=== PATIENT | male | born 1990 | race Caucasian/White ===

== ENCOUNTER 2020-05-29 15:54 | Emergency (ER) | payer OTHER ==
[~2020-05-29] VITALS: Ht 172.7 cm; Wt 90.0 kg
[2020-05-29 16:00] VITALS: BP 135/85
--- NOTE | 2020-05-29 17:19 | RAD ---
FOOT LEFT 3V 05/29/2020 4:51 PM INDICATION: Fifth digit injury COMPARISON: None available. TECHNIQUE: 3 views of the left foot are provided. 2 dedicated views of the fifth digit are provided. FINDINGS/ IMPRESSION: 1. There is a mildly displaced fracture involving the lateral base of the middle phalanx of the fifth digit with intra-articular extension. There is adjacent soft tissue swelling. 2. Bone mineralization is within normal limits. No subcutaneous gas or osseous erosion. No radiopaque foreign density. Electronically signed by: Dasia Sheehan MD (05/29/2020 5:16 PM) [id number]
--- NOTE | 2020-05-29 17:30 | PHYS DOC ---
Past History Past Medical History: No Pertinent History Past Surgical History: Cholecystectomy Alcohol Use: Rarely General Adult EDM: Chief Complaint: FOOT INJURY PAIN HPI: HPI: 29-year-old male presents with a left fifth toe pain. The patient was out walking with the dog when he caught his toe on a piece of furniture and it yanked it out laterally. He has had bruising and pain since that time. The patient is able to walk. He is only really concerned about it because he has a record PT test tomorrow and he does not feel like he can run. He denies any other injuries or complaints. Review of Systems: Review of Systems: Constitutional: Denies fever or chills Eyes: Denies change in visual acuity HENT: Denies nasal congestion or sore throat Respiratory: Denies cough or shortness of breath Cardiovascular: Denies chest pain or edema GI: Denies abdominal pain, nausea, vomiting, bloody stools or diarrhea : Denies dysuria Musculoskeletal: Left fifth toe pain Integument: Denies rash Neurologic: Denies headache, focal weakness or sensory changes Endocrine: Denies polyuria or polydipsia Lymphatic: Denies swollen glands Psychiatric: Denies depression or anxiety Allergies: Allergies: Allergies Coded Allergies Type Severity Reaction Last Updated Verified No Known Drug Allergies 05/29/20 No Physical Exam: PE: Constitutional: Well developed, well nourished, no acute distress, non-toxic appearance. [] HENT: Normocephalic, atraumatic, bilateral external ears normal, oropharynx moist, no oral exudates, nose normal. [] Eyes: PERRLA, EOMI, conjunctiva normal, no discharge. [] Neck: Normal range of motion, no tenderness, supple, no stridor. [] Cardiovascular:Heart rate regular rhythm, no murmur [] Lungs & Thorax: Bilateral breath sounds clear to auscultation [] Abdomen: Bowel sounds normal, soft, no tenderness, no masses, no pulsatile masses. [] Skin: Warm, dry, no erythema, no rash. [] Back: No tenderness, no CVA tenderness. [] Extremities: Bruising and tenderness of the left fifth toe, no obvious deformity. [] Neurologic: Alert and oriented X 3, normal motor function, normal sensory function, no focal deficits noted. [] Psychologic: Affect normal, judgement normal, mood normal. [] Current Patient Data: Vital Signs: Vital Signs Date Time Temp Pulse Resp B/P (MAP) Pulse Ox O2 Delivery O2 Flow Rate FiO2 05/29/20 16:00 98.7 87 16 135/85 (102) 97 EKG: EKG: [] Radiology/Procedures: Radiology/Procedures: [] Impressions: FOOT LEFT 3V 05/29/2020 4:51 PM INDICATION: Fifth digit injury COMPARISON: None available. TECHNIQUE: 3 views of the left foot are provided. 2 dedicated views of the fifth digit are provided. FINDINGS/ IMPRESSION: 1. There is a mildly displaced fracture involving the lateral base of the middle phalanx of the fifth digit with intra-articular extension. There is adjacent soft tissue swelling. 2. Bone mineralization is within normal limits. No subcutaneous gas or osseous erosion. No radiopaque foreign density. Electronically signed by: Ruben Sheehan MD (05/29/2020 5:16 PM) [id number] DICTATED AND SIGNED BY: RUBEN SHEEHAN MD DATE: 05/29/20 1716 CC: BRITTANY CUMMINS DO; PCP,NO ~ Heart Score: Risk Factors: Risk Factors: DM, Current or recent (<one month) smoker, HTN, HLP, family history of CAD, obesity. Risk Scores: Score 0 - 3: 2.5% MACE over next 6 weeks - Discharge Home Score 4 - 6: 20.3% MACE over next 6 weeks - Admit for Clinical Observation Score 7 - 10: 72.7% MACE over next 6 weeks - Early Invasive Strategies Course & Med Decision Making: Course & Med Decision Making Pertinent Labs and Imaging studies reviewed. (See chart for details) The patient does have a fracture of the toe. We will jeanette tape it to the toe next to it. I will also give him a note for restricted physical training. He is stable for discharge at this time. [] Dragon Disclaimer: Dragon Disclaimer: This electronic medical record was generated, in whole or in part, using a voice recognition dictation system. Departure Departure: Impression: Primary Impression: Toe fracture, left Qualified Codes: S92.522A - Displaced fracture of middle phalanx of left lesser toe(s), initial encounter for closed fracture Disposition: 01 DC HOME SELF CARE/HOMELESS Condition: STABLE Referrals: PCP,NO (PCP) Patient Instructions: Jeanette Taping of Toes, Toe Fracture with [facility] BRITTANY CUMMINS DO May 29, 2020 17:30
== END 2020-05-29 17:33 | disposition home or self-care (01) ==
LOC: ER 15:54
DX: S92.522A Displaced fracture of middle phalanx of left lesser toe(s), initial encounter for closed fracture (principal); W23.0XXA Caught, crushed, jammed, or pinched between moving objects, initial encounter; Y93.89 Activity, other specified; Y92.89 Other specified places as the place of occurrence of the external cause; Y99.8 Other external cause status
CPT/HCPCS: 73630; 99283

== ENCOUNTER 2020-09-06 20:06 | Emergency (ER) | payer OTHER ==
[~2020-09-06] VITALS: Ht 172.7 cm; Wt 90.0 kg
[2020-09-06] MEDS ORDERED: ONDA4TAB12 PO (20:29)
--- NOTE | 2020-09-06 20:30 | PHYS DOC ---
Past History Past Medical History: No Pertinent History Past Surgical History: Cholecystectomy Alcohol Use: Rarely General Adult EDM: Chief Complaint: OTHER COMPLAINTS HPI: HPI: Patient is a [age] year old [sex] who presents with [] Review of Systems: Review of Systems: Constitutional: Denies fever or chills Eyes: Denies redness or eye pain HENT: Denies nasal congestion or sore throat Respiratory: Denies cough or shortness of breath Cardiovascular: Denies chest pain or palpitations GI: Denies abdominal pain, nausea, or vomiting : Denies dysuria or hematuria Musculoskeletal: Denies back pain or joint pain Integument: Denies rash or skin lesions Neurologic: Denies headache, focal weakness or sensory changes Complete systems were reviewed and found to be within normal limits, except as documented in this note. Allergies: Allergies: Allergies Coded Allergies Type Severity Reaction Last Updated Verified No Known Drug Allergies 05/29/20 No Physical Exam: PE: Constitutional: Well developed, well nourished, no acute distress, non-toxic appearance HENT: Normocephalic, atraumatic Eyes: PERRL, EOMI, conjunctiva normal, no discharge Neck: Normal range of motion, no tenderness, supple Lungs & Thorax: No respiratory distress, equal chest rise and fall Abdomen: Soft, no tenderness Skin: Warm, dry, no erythema, no rash Back: No tenderness, no CVA tenderness Extremities: No tenderness, ROM intact, no edema Neurologic: Alert and oriented X 3, normal motor function, normal sensory function, no focal deficits noted Psychologic: Affect normal, judgment normal Current Patient Data: Vital Signs: Vital Signs Date Time Temp Pulse Resp B/P (MAP) Pulse Ox O2 Delivery O2 Flow Rate FiO2 09/06/20 20:16 98.5 77 16 150/103 (119) 97 Room Air EKG: EKG: [] Radiology/Procedures: Radiology/Procedures: [] Course & Med Decision Making: Course & Med Decision Making Patient stable for discharge with outpatient follow-up with PCP. Discussed findings and plan with patient, who acknowledges understanding and agreement. Deirdre Disclaimer: Deirdre Disclaimer: This electronic medical record was generated, in whole or in part, using a voice recognition dictation system. Departure Departure: Impression: Primary Impression: Suspected 2019 novel coronavirus infection Additional Impression: Nausea vomiting and diarrhea Disposition: 01 DC HOME SELF CARE/HOMELESS Condition: STABLE Referrals: PCP,KETAN (PCP) Patient Instructions: Diarrhea, [id number], Diet for Diarrhea, Adult, Headache, FAQs, Nausea and Vomiting, [id number] Additional Instructions: You have been tested for or diagnosed with COVID-19. It is an infection caused by a new type of coronavirus. COVID-19 will cause cold-like or mild flu symptoms in most. It can cause more severe symptoms like problems breathing in some. There is no treatment for COVID-19. The body will clear the infection over time. Self-care will help to ease discomfort. Steps to Take: Self-Care Rest as needed. Healthy habits may help you feel better. Steps include: Choose healthy foods including fruits and vegetables. Drink water throughout the day. Get plenty of sleep each night. If you smoke, try to quit. It may ease breathing. Avoid alcohol. Keep Others Healthy The virus can spread to others. Droplets are released every time you sneeze or cough. The droplets can get into the mouth, nose, or eyes of people near you and lead to infection. To lower the chances of spreading COVID-19 to others: Stay at home until your doctor has said it is safe to leave. If you tested positive this will mean staying isolated until both of the following are true: At least 7 days have passed since the start of illness. You are free of fever for at least 72 hours without the use of medicine. During this time: - Avoid public areas, events, or transportation. Do not return to work or school until your doctor has said it is safe to do so. - Call ahead if you need to go to a medical center. Let them know you may have COVID-19. It will help them guide you where to go. They may also ask you to wear a facemask when you come to the office. - If you call for emergency medical services, let them know you may have COVID-19. While at home: - Try to avoid close contact with others. Stay about 6 feet away. - If possible, spend most of your time in a separate room from others. - Use a face mask if you will be in close contact with others such as sharing a room or vehicle. - Have someone wipe down common surfaces in the home. Use household certified technician every day on areas like doorknobs, counters, or sinks. - Cough or sneeze into a tissue. Throw the tissue away right after use. If a tissue is not available, cough or sneeze into your elbow. - Wash your hands often. Wash them after sneezing or coughing. Use soap and water and wash for at least 20 seconds. Alcohol based hand assembly cleaner can be used if soap and water is not available. - Do not prepare food for others. Avoid sharing personal items like forks, spoons, or toothbrushes. - Avoid close contact with pets while you are sick. There is no evidence of the virus passing to pets. This is a safety step until more is known about this virus. Isolation can be frustrating. Social interaction can help. Keep in touch with friends and family through phone and tech options. You can still interact with others in your home, just keep a safe distance of about 6 feet. Follow-up: Your doctors office will check in with you to see if there are any changes in your health. You may be asked to keep track of symptoms to share with them. They will also let you know when you are clear to be in public again. Problems to Look Out For: Contact your doctor if your recovery is not going as you expect. Get emergency care if you have problems such as: - Trouble breathing - Nonstop chest pain or pressure - Changes in awareness, confusion, or problems waking - Lips or face have bluish color - Worsening of symptoms If you think you have an emergency, call for emergency medical services right away. [facility] Scripts Ondansetron (ONDANSETRON ODT) 4 Mg Tab.rapdis 1 TAB PO PRN Q6-8HRS PRN for NAUSEA, #16 TAB Prov: BRIGID POSADA DO 09/06/20 BRIGID POSADA DO Sep 06, 2020 20:29
--- NOTE | 2020-09-10 09:48 | NUR ---
IP: notified patient of COVID result.
== END 2020-09-06 20:37 | disposition home or self-care (01) ==
LOC: ER 20:06
DX: R11.2 Nausea with vomiting, unspecified (principal); R19.7 Diarrhea, unspecified; R51.9 Headache, unspecified; Z20.822 Contact with and (suspected) exposure to COVID-19
CPT/HCPCS: 99283; C9803; U0003

== ENCOUNTER 2021-01-04 16:08 | Emergency (ER) | payer OTHER ==
[~2021-01-04] VITALS: Ht 172.7 cm; Wt 90.0 kg
[~2021-01-04 16:08] MED LIST: ONDA4TAB12 PO
--- NOTE | 2021-01-04 17:25 | EKG ---
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
[2021-01-04] MEDS ORDERED: KETOROLAC 15 MG/ML VIAL. IVP ONE (18:00)
[2021-01-04] MEDS ORDERED: MECLIZINE 12.5 MG TABLET. PO ONE (18:00)
[2021-01-04] MEDS ORDERED: diphenhydrAMINE 50 MG/ML VIAL IM ONE (18:00)
[2021-01-04 18:25] VITALS: BP 115/67
--- NOTE | 2021-01-04 18:38 | PHYS DOC ---
Past History Past Medical History: Migraines Past Surgical History: Cholecystectomy Smoking: Non-smoker Alcohol Use: Rarely Drug Use: None General Adult EDM: Chief Complaint: DIZZY/LIGHT HEADED HPI: HPI: Patient is a 30-year-old male who presents with dizziness and headache. Patient states the dizziness started this morning. Patient has a history of chronic migraines. Patient has had an recent MRI which was negative for any acute a bnormalities. Patient has also recently worn a Holter monitor from cardiology and results were unremarkable. Patient states that dizziness is worse with position changes. Patient denies nausea/vomiting/diarrhea. Patient is currently taking amitriptyline for migraines which he says has helped. Patient's only history is migraines Review of Systems: Review of Systems: Constitutional: Denies fever or chills Eyes: Denies change in visual acuity HENT: Denies nasal congestion or sore throat, large amount of wax in right ear Respiratory: Denies cough or shortness of breath Cardiovascular: Denies chest pain or edema GI: Denies abdominal pain, nausea, vomiting, bloody stools or diarrhea : Denies dysuria Musculoskeletal: Denies back pain or joint pain Integument: Denies rash Neurologic: Reports headache, denies focal weakness or sensory changes Endocrine: Denies polyuria or polydipsia Lymphatic: Denies swollen glands Psychiatric: Denies depression or anxiety Current Medications: Current Meds: Current Medications Medications (Trade) Dose Ordered Sig/Jong Start Time Stop Time Status Last Admin Dose Admin Diphenhydramine HCl (Benadryl) 25 mg 1X ONCE 01/04/21 18:00 01/04/21 18:05 DC 01/04/21 18:21 25 MG Ketorolac Tromethamine (Toradol 15mg Vial) 15 mg 1X ONCE 01/04/21 18:00 01/04/21 18:05 DC 01/04/21 18:21 15 MG Meclizine HCl (Antivert) 25 mg 1X ONCE 01/04/21 18:00 01/04/21 18:05 DC 01/04/21 18:21 25 MG Allergies: Allergies: Allergies Coded Allergies Type Severity Reaction Last Updated Verified No Known Drug Allergies 05/29/20 No Physical Exam: PE: Constitutional: Well developed, well nourished, no acute distress, non-toxic appearance. [] HENT: Normocephalic, atraumatic,large amount of cerumen right ear, oropharynx moist, no oral exudates, nose normal. [] Eyes: PERRLA, EOMI, conjunctiva normal, no discharge. [] Neck: Normal range of motion, no tenderness, supple, no stridor. [] Cardiovascular:Heart rate regular rhythm, no murmur [] Lungs & Thorax: Bilateral breath sounds clear to auscultation [] Abdomen: Bowel sounds normal, soft, no tenderness, no masses, no pulsatile masses. [] Skin: Warm, dry, no erythema, no rash. [] Back: No tenderness, no CVA tenderness. [] Extremities: No tenderness, no cyanosis, no clubbing, ROM intact, no edema. [] Neurologic: Alert and oriented X 3, normal motor function, normal sensory function, no focal deficits noted. [] Psychologic: Affect normal, judgement normal, mood normal. [] Current Patient Data: Vital Signs: Vital Signs Date Time Temp Pulse Resp B/P (MAP) Pulse Ox O2 Delivery O2 Flow Rate FiO2 01/04/21 18:25 100 16 115/67 (83) 100 Room Air 01/04/21 16:37 98.0 EKG: EKG: [] Radiology/Procedures: Radiology/Procedures: [] Heart Score: C/O Chest Pain: No Risk Factors: Risk Factors: DM, Current or recent (<one month) smoker, HTN, HLP, family history of CAD, obesity. Risk Scores: Score 0 - 3: 2.5% MACE over next 6 weeks - Discharge Home Score 4 - 6: 20.3% MACE over next 6 weeks - Admit for Clinical Observation Score 7 - 10: 72.7% MACE over next 6 weeks - Early Invasive Strategies Course & Med Decision Making: Course & Med Decision Making Pertinent Labs and Imaging studies reviewed. (See chart for details) [] 30-year-old male presents with dizziness and headache. Patient's dizziness is worse with position changes. Patient's denying nausea or vomiting. Denies focal weakness or sensory changes. Denies visual changes. Denies worst headache of his life. Denies thunderclap. Patient has a history of migraines and recent testing has all been negative for any acute abnormalities. Patient given Benadryl, Zofran, Toradol, meclizine. Patient reports symptoms improved after medications. Physical exam of right ear showed cerumen impaction. Patient is most likely experiencing vertigo which is causing his dizziness. Meclizine given to take at home. Suggest the patient take [id number] Debrox to soften the wax. Patient instructed to return emergency room with worsening symptoms or concerns. Dragon Disclaimer: Татьянаon Disclaimer: This electronic medical record was generated, in whole or in part, using a voice recognition dictation system. Departure Departure: Impression: Primary Impression: Migraine Qualified Codes: G43.009 - Migraine without aura, not intractable, without status migrainosus Disposition: HOME / SELF CARE / HOMELESS Condition: STABLE Referrals: DALILA BLANCO DO (PCP) Patient Instructions: Migraine Headache Additional Instructions: Emergency room for dizziness and migraine headache. You were given Toradol, Benadryl, meclizine for headache and dizziness. Your EKG was negative for any acute abnormalities. Please call your PCP for a follow-up appointment. You can take ibuprofen and Tylenol at home for discomfort. Please purchase Debrox w hich is [id number] to help soften the wax in your right ear which could be contributing to your dizziness. Also sending you home with a prescription for meclizine which helps with dizziness. EMERGENCY DEPARTMENT GENERAL DISCHARGE INSTRUCTIONS Thank you for coming to [facility] (ED) today and trusting us with you care. We trust that you had a positivie experience in our Emergency Department. If you wish to speak to the department management, you may call the director at . YOUR FOLLOW UP INSTRUCTIONS ARE FOLLOWS: 1. Do you have a private Doctor? If you do not have a private doctor, please ask for a resource list of physicians or clinics that may be able to assist you with follow up care. 2. The Emergency Physician has interpreted your x-rays. The X-Ray specialist will also review them. If there is a change in the findings, you will be notified in 48 hours when at all possible. 3. A lab test or culture has been done, your results will be reviewed and you will be notified if you need a change in treatment. ADDITIONAL INSTRUCTIONS AND INFORMATION: 1. Your care today has been supervised by a physician who is specially trained in emergency care. Many problems require more than one evaluation for a complete diagnosis and treatment. We recommend that you schedule your follow up appointment as recommended to ensure complete treatment of you illness or injury. If you are unable to obtain follow up care and continue to have a problem, or if your condition worsens, we recommend that you return to the ED. 2. We are not able to safely determine your condition over the phone nor are we able to give sound medical advice over the phone. For these safety reasons, if you call for medical advice we will ask you to come to the ED for further evaluation. 3. If you have any questions regarding these discharge instructions please call the ED at [phone]. SAFETY INFORMATION: In the interest of safety, wellness, and injury prevention; we encourage you to wear your sealbelt, if you smoke; quite smoking, and we encourage family to use a protective helmet for bicycling and other sporting events that present an increased risk for head injury. IF YOUR SYMPTOMS WORSEN OR NEW SYMPTOMS DEVELOP, OR YOU HAVE CONCERNS ABOUT YOUR CONDITION; OR IF YOUR CONDITION WORSENS WHILE YOU ARE WAITING FOR YOUR FOLLOW UP APPOINTMENT; EITHER CONTACT YOUR PRIMARY CARE DOCTOR, THE PHYSICIAN WHOSE NAME AND NUMBER YOU WERE GIVEN, OR RETURN TO THE ED IMMEDIATELY. Scripts Meclizine Hcl (MECLIZINE HCL) 25 Mg Tablet 1 TAB PO TID for dizziness for 7 Days, #21 TAB Prov: FADIA EUGENE APRN 01/04/21 FADIA EUGENE APRN January 04, 2021 18:38
[2021-01-04] MEDS ORDERED: MECL-75 PO (19:31)
== END 2021-01-04 19:46 | disposition home or self-care (01) ==
LOC: ER 16:08
DX: G43.909 Migraine, unspecified, not intractable, without status migrainosus (principal); R42 Dizziness and giddiness; F17.210 Nicotine dependence, cigarettes, uncomplicated; Z90.49 Acquired absence of other specified parts of digestive tract
CPT/HCPCS: 93005; 96372; 96374; 99283; J1200; J1885

== ENCOUNTER 2021-05-20 19:23 | Emergency (ER) | payer OTHER ==
[~2021-05-20] VITALS: Ht 172.7 cm; Wt 86.3 kg
[~2021-05-20 19:23] MED LIST changes: +MECL-75 PO
[2021-05-20] MEDS ORDERED: ONDANSETRON ODT 4 MG TAB.RAPDIS ONE (19:33)
--- NOTE | 2021-05-20 19:43 | PHYS DOC ---
Past History Past Medical History: Migraines (KEMI GALICIA APRN) Past Surgical History: Cholecystectomy (KEMI GALICIA APRN) Smoking: Non-smoker Alcohol Use: Rarely Drug Use: None (KEMI GALICIA APRN) General Adult EDM: Chief Complaint: DIZZY/LIGHT HEADED HPI: HPI: Patient is a 30-year-old male who presents to the ER for complaints of feeling of his heart is racing associated with diaphoresis, dizziness and nausea that started 30 minutes prior to arrival while he was playing with his daughter. Patient states that he has had palpitations in the past and wore a Holter monitor for 72 hours but no abnormalities were found. Patient reports that his palpitations have improved but is still experiencing dizziness and nausea. He describes it as the room spinning. It is worse with head movements. Patient has no medical history and takes no medications at home. He does not smoke and he has no family history of heart disease. Patient denies vomiting, shortness of breath, cough, fevers, chest pain. (KEMI GALICIA APRN) Review of Systems: Review of Systems: 14 body systems of the review of systems have been reviewed. See HPI for pertinent positive and negative responses, otherwise all other systems are negative, nonpertinent or noncontributory (KEMI GALICIA APRN) Current Medications: Current Meds: Current Medications Medications (Trade) Dose Ordered Sig/Jong Start Time Stop Time Status Last Admin Dose Admin Ondansetron HCl (Zofran Odt) 4 mg STK-MED ONCE 05/20/21 19:33 05/20/21 19:33 DC (KEMI GALICIA APRN) Allergies: Allergies: Allergies Coded Allergies Type Severity Reaction Last Updated Verified No Known Drug Allergies 05/29/20 No (KEMI GALICIA APRN) Physical Exam: PE: Constitutional: Well developed, well nourished, no acute distress, non-toxic appearance. [] HENT: Normocephalic, atraumatic, bilateral external ears normal, oropharynx moist, no oral exudates, nose normal. [] Eyes: PERRL, EOMI, conjunctiva normal, no discharge. [] Neck: Normal range of motion, no stridor Cardiovascular:Heart rate regular rhythm, no murmur [] Lungs & Thorax: Bilateral breath sounds clear to auscultation [] Abdomen: Bowel sounds normal, soft, no tenderness, no masses, no pulsatile masses. [] Skin: Warm, dry, no erythema, no rash. [] Back: Normal range of motion Extremities: No tenderness, no cyanosis, no clubbing, ROM intact, no edema. [] Neurologic: Alert and oriented X 3, normal motor function, normal sensory function, no focal deficits noted, dizziness worse with horizontal head movements Psychologic: Affect normal, judgement normal, mood normal. [] (KEMI GALICIA APRN) Current Patient Data: Labs: Laboratory Tests Test 05/20/21 19:34 White Blood Count 7.9 x10^3/uL Red Blood Count 5.26 x10^6/uL Hemoglobin 16.0 g/dL Hematocrit 46.3 % Mean Corpuscular Volume 88 fL Mean Corpuscular Hemoglobin 30 pg Mean Corpuscular Hemoglobin Concent 35 g/dL Red Cell Distribution Width 12.8 % Platelet Count 255 x10^3/uL Neutrophils (%) (Auto) 41 % Lymphocytes (%) (Auto) 50 % Monocytes (%) (Auto) 6 % Eosinophils (%) (Auto) 3 % Basophils (%) (Auto) 1 % Neutrophils # (Auto) 3.2 x10^3uL Lymphocytes # (Auto) 3.9 x10^3/uL Monocytes # (Auto) 0.5 x10^3/uL Eosinophils # (Auto) 0.2 x10^3/uL Basophils # (Auto) 0.0 x10^3/uL Sodium Level 140 mmol/L Potassium Level 3.9 mmol/L Chloride Level 103 mmol/L Carbon Dioxide Level 31 mmol/L Anion Gap 6 Blood Urea Nitrogen 12 mg/dL Creatinine 1.1 mg/dL Estimated GFR (Cockcroft-Gault) 79.7 BUN/Creatinine Ratio 11 Glucose Level 137 mg/dL Calcium Level 9.5 mg/dL Total Bilirubin 0.3 mg/dL Aspartate Amino Transf (AST/SGOT) 17 U/L Alanine Aminotransferase (ALT/SGPT) 36 U/L Alkaline Phosphatase 74 U/L Troponin I Quantitative < 0.017 ng/mL Total Protein 6.9 g/dL Albumin 4.2 g/dL Albumin/Globulin Ratio 1.6 Current Medications Medications (Trade) Dose Ordered Sig/Jong Route PRN Reason Start Time Stop Time Status Last Admin Dose Admin Ondansetron HCl (Zofran Odt) 4 mg STK-MED ONCE .ROUTE 05/20/21 19:33 05/20/21 19:33 DC Sodium Chloride 1,000 ml @ 100 mls/hr Q10H IV 05/20/21 19:45 05/21/21 05:44 05/20/21 19:42 Meclizine HCl (Antivert) 25 mg 1X ONCE PO 05/20/21 20:15 05/20/21 20:16 DC 05/20/21 19:45 Ondansetron HCl (Zofran Odt) 4 mg 1X ONCE PO 05/20/21 20:15 05/20/21 20:16 DC 05/20/21 19:45 Vital Signs: Vital Signs Date Time Temp Pulse Resp B/P (MAP) Pulse Ox O2 Delivery O2 Flow Rate FiO2 05/20/21 19:36 69 18 131/67 (88) 99 (KEMI GALICIA APRN) EKG: EKG: EKG performed at 1926 shows sinus rhythm with a rate of 77, QTc 402, no stemi, read by Dr. Laboy at 1938 (KEMI GALICIA APRN) Radiology/Procedures: Radiology/Procedures: []PROCEDURE: PORTABLE CHEST 1V AP chest. HISTORY: Palpitations AP view was taken of the chest. Lungs are free of infiltrates. There is mild bowel distention the abdomen. Heart is normal in size. There is no pleural ef fusion. IMPRESSION: 1. No acute infiltrates. Electronically signed by: Isidro Alvarez MD (05/20/2021 8:07 PM) [facility] DICTATED AND SIGNED BY: ISIDRO ALVAREZ MD DATE: 05/20/212005 CC: EMERGENCY,DEPARTMENT; KEMI GALICIA APRN; PCP,UNKNOWN ~MTH0 0 (KEMI GALICIA APRN) Heart Score: C/O Chest Pain: No HEART Score for Chest Pain: HEART Score for Chest Pain Response (Comments) Value History Slighlty/Non-Suspicious 0 ECG Normal 0 Age < 45 0 Risk Factors No Risk Factors 0 Troponin < Normal Limit 0 Total 0 Risk Factors: Risk Factors: DM, Current or recent (<one month) smoker, HTN, HLP, family hi story of CAD, obesity. Risk Scores: Score 0 - 3: 2.5% MACE over next 6 weeks - Discharge Home Score 4 - 6: 20.3% MACE over next 6 weeks - Admit for Clinical Observation Score 7 - 10: 72.7% MACE over next 6 weeks - Early Invasive Strategies (KEMI GALICIA APRN) Course & Med Decision Making: Course & Med Decision Making Pertinent Labs and Imaging studies reviewed. (See chart for details) [] Patient is a 30-year-old male being seen in the ER for palpitations, dizziness and nausea. Work-up in the ER consisted of chest x-ray, EKG, blood work.Negative for orthostatic hypotension. He was treated with nausea medication, Antivert and IV fluids. Patient also given aspirin tablet. Patient has horizontal nystagmus, dizziness worse with head movements/position changes, is intermittent and best when patient is sitting -worse with laying flat/standing, it was sudden onset, associated with nausea, described as spinning sensation. Patient's work-up in the ER was unremarkable. Patient will be discharged home with Antivert and advised to increase his fluids at home. Patient advised to follow-up with his primary care provider tomorrow regarding his ER visit. I discussed with patient all findings and diagnostic testing as well as the need to follow-up with PCP for further evaluation and treatment or return to the ER if any new or worsening symptoms. Strict return precautions were also discussed at length. Patient voiced understanding and agreement with the plan. Patient is hemodynamically stable at the time of disposition. (KEMI GALICIA APRN) Dragon Disclaimer: Dragon Disclaimer: This electronic medical record was generated, in whole or in part, using a voice recognition dictation system. (KEMI GALICIA APRN) Departure Departure: Impression: Primary Impression: Vertigo Disposition: 01 HOME / SELF CARE / HOMELESS Condition: GOOD Referrals: PCP,UNKNOWN (PCP) Patient Instructions: Vertigo Additional Instructions: You are seen in the emergency department for dizziness, palpitations and nausea. Your work-up in the ER was unremarkable. It is likely that you are experiencing something called vertigo. You are being discharged home with a medication called Antivert that you can take for your dizziness at home. Ensure that you increase your fluids and are having adequate amount of fluid intake as dehydration can also cause dizziness. As we discussed, at this time you are not having an acute coronary syndrome. That however does not mean that you are not having irregular heartbeats that were not witnessed in the ER. I would advise you to follow-up with your primary care provider tomorrow regarding your ER visit. You may need to be evaluated by cardiology. You can contact the cardiology group at [facility] by calling [phone] to set up an appointment. Slowly make position changes to avoid falling. Please return to the emergency department if you develop chest pain, palpitations, dizziness, syncope, intractable nausea or vomiting, high fevers refractory to treatment, confusion, severe headache, speech problems, vision problems, shortness of breath, falls or any new or worsening concerns. EMERGENCY DEPARTMENT GENERAL DISCHARGE INSTRUCTIONS Thank you for coming to [facility] (ED) today and trusting us with you care. We trust that you had a positivie experience in our Emergency Department. If you wish to speak to the department management, you may call the director at [phone]. YOUR FOLLOW UP INSTRUCTIONS ARE FOLLOWS: 1. Do you have a private Doctor? If you do not have a private doctor, please ask for a resource list of physicians or clinics that may be able to assist you with follow up care. 2. The Emergency Physician has interpreted your x-rays. The X-Ray specialist will also review them. If there is a change in the findings, you will be notified in 48 hours when at all possible. 3. A lab test or culture has been done, your results will be reviewed and you will be notified if you need a change in treatment. ADDITIONAL INSTRUCTIONS AND INFORMATION: 1. Your care today has been supervised by a physician who is specially trained in emergency care. Many problems require more than one evaluation for a complete diagnosis and treatment. We recommend that you schedule your follow up appointment as recommended to ensure complete treatment of you illness or injury. If you are unable to obtain follow up care and continue to have a problem, or if your condition worsens, we recommend that you return to the ED. 2. We are not able to safely determine your condition over the phone nor are we able to give sound medical advice over the phone. For these safety reasons, if you call for medical advice we will ask you to come to the ED for further evaluation. 3. If you have any questions regarding these discharge instructions please call the ED at [phone]. SAFETY INFORMATION: In the interest of safety, wellness, and injury prevention; we encourage you to wear your sealbelt, if you smoke; quite smoking, and we encourage family to use a protective helmet for bicycling and other sporting events that present an increased risk for head injury. IF YOUR SYMPTOMS WORSEN OR NEW SYMPTOMS DEVELOP, OR YOU HAVE CONCERNS ABOUT YOUR CONDITION; OR IF YOUR CONDITION WORSENS WHILE YOU ARE WAITING FOR YOUR FOLLOW UP APPOINTMENT; EITHER CONTACT YOUR PRIMARY CARE DOCTOR, THE PHYSICIAN WHOSE NAME AND NUMBER YOU WERE GIVEN, OR RETURN TO THE ED IMMEDIATELY. Scripts Meclizine Hcl (MECLIZINE HCL) 25 Mg Tablet 1 TAB PO TID for vertigo for 7 Days, #21 TAB 0 Refills Prov: KEMI GALICIA APRN 05/20/21 Attending Signature Attending Signature I have participated in the care of this patient and I have reviewed and agree wi th all pertinent clinical information above including history, exam, and recommendations. (IRLANDA LABOY MD) KEMI GALICIA APRN May 20, 2021 19:43 IRLANDA LABOY MD May 21, 2021 06:47
[2021-05-20] MEDS ORDERED: IV NORMAL SALINE 1,000ML 1,000 ML IV SCH (19:45)
--- NOTE | 2021-05-20 20:09 | RAD ---
AP chest. HISTORY: Palpitations AP view was taken of the chest. Lungs are free of infiltrates. There is mild bowel distention the abd omen. Heart is normal in size. There is no pleural effusion. IMPRESSION: 1. No acute infiltrates. Electronically signed by: Isidro Alvarez MD (05/20/2021 8:07 PM) [facility]
[2021-05-20] MEDS ORDERED: MECLIZINE 12.5 MG TABLET. PO ONE (20:15)
[2021-05-20] MEDS ORDERED: ONDANSETRON ODT 4 MG TAB.RAPDIS PO ONE (20:15)
[2021-05-20 20:23] LABS: BASO % 1 % (0-3); EOS # 0.2 x10^3/uL (0.0-0.7); EOS % 3 % (0-3); HEMATOCRIT 46.3 % (39.0-53.0); LYMPH # 3.9 x10^3/uL (1.0-4.8); LYMPH % 50 % (24-48); MEAN CORPUSCULAR HEMOGLOBIN 30 pg (25-35); MEAN CORPUSCULAR HGB CONC 35 g/dL (31-37); MEAN CORPUSCULAR VOLUME 88 fL (79-100); MONO # 0.5 x10^3/uL (0.0-1.1); MONO % 6 % (0-9); NEUT # 3.2 x10^3uL (1.8-7.7); NEUT % 41 % (31-73); PLATELET COUNT 255 x10^3/uL (140-400); RED BLOOD COUNT 5.26 x10^6/uL (4.30-5.70); RED CELL DISTRIBUTION WIDTH 12.8 % (11.5-14.5); WHITE BLOOD COUNT 7.9 x10^3/uL (4.0-11.0)
[2021-05-20 20:29] LABS: CALCIUM 9.5 mg/dL (8.5-10.1); CREATININE 1.1 mg/dL (0.7-1.3); GFR 79.7; POTASSIUM 3.9 mmol/L (3.5-5.1)
[2021-05-20 20:35] LABS: ALBUMIN 4.2 g/dL (3.4-5.0); ALBUMIN/GLOBULIN RATIO 1.6 (1.0-1.7); TOTAL BILIRUBIN 0.3 mg/dL (0.2-1.0); TOTAL PROTEIN 6.9 g/dL (6.4-8.2)
[2021-05-20] MEDS ORDERED: MECL-75 PO (21:08)
[2021-05-20 21:24] VITALS: BP 128/82
[2021-05-20] MEDS ORDERED: ASPIRIN CHEWABLE 81 MG TABLET. PO ONE (21:45)
--- NOTE | 2021-05-21 04:10 | EKG ---
[address] [address] Test Date: 2021-05-20 Test Time: 19:26:25 Pat Name: JESSICA OLIVAREZ Department: Room: Gender: M [employer] Cr[employer] Operator: MARIANO : 1990 Requested By: KEMI GALICIA Order Number: [id number] Reading MD: Colin Middleton MD Measurements Intervals [place] Rate: 77 P: 41 ME: 202 QRS: 54 QRSD: 88 T: 60 QT: 354 QTc: 402 Interpretive Statements SINUS RHYTHM Electronically Signed On 05-27-2021 11:56:12 CDT by Colin Middleton MD
== END 2021-05-20 21:40 | disposition home or self-care (01) ==
LOC: ER 19:23
DX: R42 Dizziness and giddiness (principal); R00.2 Palpitations; G43.909 Migraine, unspecified, not intractable, without status migrainosus
CPT/HCPCS: 36415; 71045; 80053; 84484; 85025; 93005; 96360; 99285; J7030; Q0162

== ENCOUNTER 2021-11-08 21:03 | Emergency (ER) | payer OTHER ==
[~2021-11-08] VITALS: Ht 172.7 cm; Wt 86.3 kg
--- NOTE | 2021-11-08 21:20 | PHYS DOC ---
Past History Past Medical History: Migraines Past Surgical History: Cholecystectomy Smoking: Non-smoker Alcohol Use: None Drug Use: None General Adult EDM: Chief Complaint: BLOOD IN URINE HPI: HPI: ".. I had a lot of blood in my urine..." Patient is a 31 year old male who presents with complaints of hematuria. Pain seemed to start in low back radiates to his testicles on right. No history of trauma. No history of previous kidney stones. Patient does have reshma hematuria. There is a family history of kidney stones on his mother side. No history of travel. No history immunosuppression. No fever or chills. Review of Systems: Review of Systems: Constitutional: Denies fever or chills Eyes: Denies change in visual acuity HENT: Denies nasal congestion or sore throat Respiratory: Denies cough or shortness of breath Cardiovascular: Denies chest pain or edema GI: Lower abdominal pain, nausea. Denies, vomiting, bloody stools or diarrhea : Denies dysuria Musculoskeletal: Lower right back pain Integument: Denies rash Neurologic: Denies headache, focal weakness or sensory changes Endocrine: Denies polyuria or polydipsia Lymphatic: Denies swollen glands Psychiatric: Denies depression or anxiety Family History: Family History: mother has kidney stones Current Medications: Current Meds: See nursing for home meds Allergies: Allergies: Allergies Coded Allergies Type Severity Reaction Last Updated Verified No Known Drug Allergies 05/29/20 No Physical Exam: PE: Constitutional: Well developed, well nourished, moderate acute distress, non- toxic appearance. [] HENT: Normocephalic, atraumatic, bilateral external ears normal, oropharynx moist, no oral exudates, nose normal. [] Eyes: PERRLA, EOMI, conjunctiva normal, no discharge. [] Neck: Normal range of motion, no tenderness, supple, no stridor. [] Cardiovascular:Heart rate regular rhythm, no murmur [] Lungs & Thorax: Bilateral breath sounds clear to auscultation [] Abdomen: Bowel sounds decreased, soft, no tenderness, no masses, no pulsatile masses. Circumcised male. Testicles not to if definitively tender. Distended. Old surgical scars. Skin: Warm, dry, no erythema, no rash. [] Back: No tenderness, mild rt. CVA tenderness. [] Extremities: No tenderness, no cyanosis, no clubbing, ROM intact, no edema. No psoas sign. Neurologic: Alert and oriented X 3, normal motor function, normal sensory funct ion, no focal deficits noted. [] Psychologic: Affect normal, judgement normal, mood normal. [] EKG: EKG: [] Radiology/Procedures: Radiology/Procedures: [][address] [address] IMAGING REPORT Signed PATIENT: JESSICA OLIVAREZ AACCOUNT: [id number] : 1990 LOCATION: ER AGE: 31 SEX: M EXAM STATUS: REG ER ORD. PHYSICIAN: IRLANDA CANNON MD REASON: Hematuria, TESTICULAR PAIN PROCEDURE: CT ABDOMEN PELVIS WO CONTRAST Examination: CT of the abdomen pelvis without contrast HISTORY: History of hematuria, testicular pain COMPARISON: None available TECHNIQUE: Axial CT images of the abdomen pelvis were performed without contrast. Coronal and sagittal reformats are performed Exposure: One or more of the following individualized dose reduction techniques were utilized for this examination: 1. Automated exposure control 2. Adjustment of the mA and/or kV according to patient size 3. Use of iterative reconstruction technique FINDINGS: The bibasilar lungs are clear. No evidence of free air identified in the abdomen. The evaluation of the solid organs is limited due to lack of IV contrast. The evaluation of bowel is limited due to lack of oral contrast. The noncontrasted liver, spleen, adrenals grossly appears unremarkable. Cholecystectomy changes identified. The stomach is mildly distended. The visualized pancreas grossly appears unremarkable mild fat stranding identified about the small bowel loops i n the right lower quadrant. The appendix is normal. Feces and gas noted in the colon Minimal right hydronephrosis with a 4 mm calculus in the right proximal ureter. Urinary bladder is mildly distended. No evidence of lytic bony destructive lesion IMPRESSION: 1. 4 mm calculus identified in the right proximal ureter causing minimal right hydronephrosis. 2. Mild fat stranding identified about the small bowel loops in the right lower quadrant could be due to nondistention or mild enteritis. Electronically signed by: Chandrakant Armas MD (11/08/2021 9:58 PM) [id number] DICTATED AND SIGNED BY: CHANDRAKANT ARMAS MD DATE: 11/08/212145 CC: IRLANDA CANNON MD; BELLE FRIAS MD ~ Heart Score: C/O Chest Pain: N/A Risk Factors: Risk Factors: DM, Current or recent (<one month) smoker, HTN, HLP, family hi story of CAD, obesity. Risk Scores: Score 0 - 3: 2.5% MACE over next 6 weeks - Discharge Home Score 4 - 6: 20.3% MACE over next 6 weeks - Admit for Clinical Observation Score 7 - 10: 72.7% MACE over next 6 weeks - Early Invasive Strategies Course & Med Decision Making: Course & Med Decision Making Pertinent Labs and Imaging studies reviewed. (See chart for details) Push fluids. Take Zofran for nausea and vomiting. Tylenol and ibuprofen for pain. If marked pain may take Vicoprofen up to 4 times a day. Take Flomax daily. Impression: 1. Kidney stone 2. Hematuria [] Dragon Disclaimer: Dragon Disclaimer: This electronic medical record was generated, in whole or in part, using a voice recognition dictation system. Departure Departure: Referrals: BELLE FRIAS MD (PCP) Scripts Hydrocodone/Ibuprofen (HYDROCODONE-IBUPROFEN 7.5-200 ) 1 Each Tablet 1 TAB PO PRN Q6HRS PRN for PAIN, #30 TAB 0 Refills Prov: IRLANDA CANNON MD 11/09/21 Tamsulosin Hcl (FLOMAX) 0.4 Mg Cap.er.24h 0.4 MG PO DAILY for renal colic, #30 CAP.SR Prov: IRLANDA CANNON MD 11/09/21 Ondansetron Hcl (ONDANSETRON HCL) 8 Mg Tablet 8 MG PO QIDPRN PRN for NAUSEA/VOMITING, #30 TAB Prov: IRLANDA CANNON MD 11/09/21 Dragon Disclaimer This chart was dictated in whole or in part using Voice Recognition software in a busy, high-work load, and often noisy Emergency Department environment. It may contain unintended and wholly unrecognized errors or omissions. Dragon Disclaimer This chart was dictated in whole or in part using Voice Recognition software in a busy, high-work load, and often noisy Emergency Department environment. It may contain unintended and wholly unrecognized errors or omissions. IRLANDA CANNON MD Nov 08, 2021 21:20
[2021-11-08] MEDS ORDERED: IV RINGERS SOLUTION,LACTATED 1,000 ML IV ONE (21:30)
--- NOTE | 2021-11-08 22:01 | RAD ---
Examination: CT of the abdomen pelvis without contrast HISTORY: History of hematuria, testicular pain COMPARISON: None available TECHNIQUE: Axial CT images of the abdomen pelvis were performed without contrast. Coronal and sagitta l reformats are performed Exposure: One or more of the following individualized dose reduction techniques were utilized for thi s examination: 1. Automated exposure control 2. Adjustment of the mA and/or kV according to patient size 3. Use of iterative reconstruction technique FINDINGS: The bibasilar lungs are clear. No evidence of free air identified in the abdomen. The evaluation of the solid organs is limited due to lack of IV contrast. The evaluation of bowel is limited due to lack of oral contrast. The noncontrasted liver, spleen, adrenals grossly appears unrem arkable. Cholecystectomy changes identified. The stomach is mildly distended. The visualized pancreas grossly appears unremarkable mild fat stranding identified about the small bowel loops in the right lower quadrant. The appendix is normal. Feces and gas noted in the colon Minimal right hydronephrosis with a 4 mm calculus in the right proximal ureter. Urinary bladder is mi ldly distended. No evidence of lytic bony destructive lesion IMPRESSION: 1. 4 mm calculus identified in the right proximal ureter causing minimal right hydronephrosis. 2. Mild fat stranding identified about the small bowel loops in the right lower quadrant could be du e to nondistention or mild enteritis. Electronically signed by: Chandrakant Armas MD (11/08/2021 9:58 PM) [id number]
[2021-11-08 22:10] LABS: HEMATOCRIT 46.4 % (39.0-53.0); RED BLOOD COUNT 5.29 x10^6/uL (4.30-5.70); WHITE BLOOD COUNT 6.3 x10^3/uL (4.0-11.0)
[2021-11-08 22:19] LABS: CALCIUM 9.1 mg/dL (8.5-10.1); CREATININE 1.1 mg/dL (0.7-1.3); GFR 79.1; POTASSIUM 3.8 mmol/L (3.5-5.1)
[2021-11-08] MEDS ORDERED: TAMSULOSIN 0.4 MG CAP.ER.24H. PO ONE (22:30)
[2021-11-09 00:10] LABS: BARBITURATES NEG (NEG); BENZODIAZEPINES NEG (NEG); CANNABINOIDS NEG (NEG); COCAINE NEG (NEG); METHADONE NEG (NEG); OPIATES NEG (NEG); PHENCYCLIDINE NEG (NEG)
[2021-11-09 00:13] LABS: AMPHETAMINE/METHAMPHETAMINE NEG (NEG)
[2021-11-09] MEDS ORDERED: HYDR-1179 PO (00:14)
[2021-11-09] MEDS ORDERED: ONDA-85 PO (00:14)
[2021-11-09] MEDS ORDERED: TAMS0.4C97 PO (00:14)
[2021-11-09 00:16] LABS: BACTERIA,URINE 0 /HPF (0-FEW); CLARITY,URINE CLOUDY; COLOR,URINE YELLOW; GLUCOSE,URINE NEG (NEG); NITRITE,URINE NEG (NEG); RBC,URINE >40 /HPF (0-2); SQUAMOUS EPITHELIAL CELL,UR OCC /LPF; WBC,URINE OCC /HPF (0-4)
[2021-11-09 01:53] VITALS: BP 126/59
== END 2021-11-09 01:53 | disposition home or self-care (01) ==
LOC: ER 21:08
DX: N13.2 Hydronephrosis with renal and ureteral calculous obstruction (principal); G43.909 Migraine, unspecified, not intractable, without status migrainosus; Z90.49 Acquired absence of other specified parts of digestive tract
CPT/HCPCS: 36415; 74176; 80048; 80307; 81001; 85027; 87491; 87591; 96360; 99284; J7120